=== PATIENT | male | born 1980 | race Caucasian/White ===

== ENCOUNTER 2020-06-19 07:08 | Day surgery (SDC) | payer BC, OTHER ==
[~2020-06-19] VITALS: Ht 190.5 cm; Wt 138.5 kg
[2020-06-19 08:47] VITALS: BP 123/82; PULSE 89; TEMP 99
[2020-06-19] MEDS ORDERED: ACID REDUCER PO (08:56)
[2020-06-19] MEDS ORDERED: TYLENOL 325MG325 MG PO (08:57)
[2020-06-19] MEDS ORDERED: ADVIL200 MG PO (08:57)
--- NOTE | 2020-06-19 09:03 | NUR ---
[facility] called for pt's COVID results. Results reported as negative and document will be faxed to our hospital.
--- NOTE | 2020-06-19 10:45 | NUR ---
Report received from SAHARA Do in PACU.
--- NOTE | 2020-06-19 10:49 | NUR ---
Transfer pt from PACU to GI Endo area via cart and this RN.
--- NOTE | 2020-06-19 10:52 | NUR ---
Pt arrives to [facility]. Monitors on and alarms set. Call light within reach. Pt alert and oriented. Pt requests water and ice chips only. Pt has no complaints of pain or nausea.
[2020-06-19 10:56] VITALS: BP 119/83; PULSE 88; TEMP 98.1
[2020-06-19 11:00] VITALS: BP 129/82; PULSE 75
[2020-06-19 11:15] VITALS: BP 125/78; PULSE 71
--- NOTE | 2020-06-19 11:33 | NUR ---
Pt ambulates to restroom with this RN assist.
--- NOTE | 2020-06-19 11:35 | NUR ---
Pt ambulates back from restroom.
--- NOTE | 2020-06-19 11:45 | NUR ---
Discharge instructions given to pt. Handed to him are a thank you card, discharge information, diagnosis information, and a sheet of procedural photos. All questions answered to his satisfaction.
--- NOTE | 2020-06-19 11:45 | NUR ---
Discharge instructions given to pt. Handed to him are a thank you card, discharge information, and diagnosis information. All questions answered to his satisfaction.
--- NOTE | 2020-06-19 11:48 | NUR ---
Pt transferred out of hospital via wheelchair to private vehicle driven by family.
== END 2020-06-19 11:48 | disposition home or self-care (01) ==
LOC: SDCO 07:08
DX: K21.00 Gastro-esophageal reflux disease with esophagitis, without bleeding (principal); K29.50 Unspecified chronic gastritis without bleeding; K31.7 Polyp of stomach and duodenum; T18.128A Food in esophagus causing other injury, initial encounter; G47.33 Obstructive sleep apnea (adult) (pediatric); K44.9 Diaphragmatic hernia without obstruction or gangrene
CPT/HCPCS: J0330; J2704; J3010

== ENCOUNTER 2020-09-18 13:06 | Day surgery (SDC) | payer OTHER ==
[~2020-09-18] VITALS: Ht 190.5 cm; Wt 136.0 kg
[~2020-09-18 13:06] MED LIST: ADVIL200 MG PO; PANTOPRAZOLE PO; TYLENOL 325MG325 MG PO
[2020-09-18 13:38] VITALS: BP 136/86; PULSE 68; TEMP 98.6
[2020-09-18 15:10] VITALS: BP 141/80; PULSE 75; TEMP 98.3
--- NOTE | 2020-09-18 15:10 | NUR ---
PATIENT TRANSPORTED PER CART FROM ENDO SUITE TO BAY 5 ACCOMPANIED BY ENDO RN. PATIENT AMBULATED FROM CART TO CHAIR WITH SLOW STEADY GAIT. WITH 2 ASSIST. PATIENT ALERT AND TALKING WITH STAFF. AT BEDSIDE. VERBAL REPORT RECEIVED.
[2020-09-18 15:15] VITALS: BP 130/90; PULSE 71
[2020-09-18 15:30] VITALS: BP 140/91; PULSE 65
--- NOTE | 2020-09-18 15:35 | NUR ---
VSS ON ROOM AIR. PATIENT DRINKING DIET COKE WITHOUT PROBLEMS. PATIENT GIVEN MUFFIN TO EAT. AT CHAIRSIDE AND TALKS WITH PATIENT. DR LOPEZ IN ROOM AND SPEAKS WITH PATIENT AND .
[2020-09-18 15:45] VITALS: BP 120/88; PULSE 68
--- NOTE | 2020-09-18 15:45 | NUR ---
VSS ON ROOM AIR. PATIENT DENIES DISCOMFORT AND NAUSEA. DISCHARGE INSTRUCTIONS GIVEN VERBAL AND DISCHARGE PACKET PROVIDED. QUESTIONS ANSWERED AND PATIENT AND VOICED UNDERSTANDING. 1550 IV SITE DC'D WITH CATHETER TIP INTACT. PRESSURE AND BANDAGE APPLIED. 1557 PATIENT DISCHARGED PER WHEEL CHAIR TO PERSONAL SUV. DRIVING.
== END 2020-09-18 15:57 | disposition home or self-care (01) ==
LOC: SDCO 13:06
DX: K21.00 Gastro-esophageal reflux disease with esophagitis, without bleeding (principal); K29.70 Gastritis, unspecified, without bleeding; K44.9 Diaphragmatic hernia without obstruction or gangrene; E66.9 Obesity, unspecified; G47.33 Obstructive sleep apnea (adult) (pediatric); Z88.0 Allergy status to penicillin; Z79.891 Long term (current) use of opiate analgesic; Z88.8 Allergy status to other drugs, medicaments and biological substances; Z99.89 Dependence on other enabling machines and devices; Z20.822 Contact with and (suspected) exposure to COVID-19
CPT/HCPCS: J2704; J7120